=== PATIENT | male | born 1955 | race Caucasian/White ===

== ENCOUNTER 2025-06-29 22:03 | Emergency (ER) | payer MEDICARE, SELFPAY ==
--- NOTE | ~2025-06-29 | CT_ITS ---
EXAMINATION: CT forearm LT wo con COMPARISON: None HISTORY: large hematoma TO MID POSTERIOR FOREARM AFTER FALL TECHNIQUE: Axial images were obtained without IV contrast. Sagittal, coronal reconstruction images were obtained from the axial views. CT scan performed using dose optimization techniques including the following automated exposure control; adjustment of mA and/or kV; use of iterative reconstruction technique. Automatic exposure control was used to reduce radiation dose. Permanent radiation dose record is archived to PACS. FINDINGS: Soft tissues demonstrate diffuse stranding with subcutaneous hemorrhage within the subcutaneous tissues along the dorsal aspect. There is no intramuscular hemorrhage identified. No subcutaneous air or radiopaque foreign body demonstrated. There is no fracture or dislocation. No osseous destruction. Minimal degenerative changes. IMPRESSION: Posttraumatic soft tissue changes with hematoma. Follow-up is recommended to assess resolution Reviewed, dictated and finalized at location A. IMPRESSION: Posttraumatic soft tissue changes with hematoma. Follow-up is recom mended to assess resolution
[2025-06-29 22:03] VITALS: BP 167/99; PULSE 101; RESP 17; TEMP 36.7; O2SAT 97
--- NOTE | 2025-06-29 22:10 | PC.NURSE ---
ERP aware of pt's blood pressure. No new orders at this time.
--- NOTE | 2025-06-29 22:16 | ED_ITS ---
HPI - Wound/Laceration General Chief Complaint: Fall Stated Complaint: bump on arm Time Seen by Provider: 06/29/25 22:16 Source: patient and family Mode of arrival: ambulatory Limitations: no limitations History of Present Illness HPI narrative: Patient is a 70-year-old male who was drinking at his local pub this evening and took a fall from ground level and landed on his left forearm. There is a large hematoma formation of most of the left forearm. Pain is minimal but patient is also alcohol intoxicated. Onset (ago): hour(s) (2) Extremity Location: Left: forearm Place: outdoors, park and other (Patient's local pub and he fell outside the pub) Patient tetanus UTD: No Context: accidental Associated symptoms: pain and loss of feeling/numbness Treatments prior to arrival: other (None) Related Data Allergies Allergy/AdvReac Type Severity Reaction Status Date / Time No Known Allergies Allergy Verified 06/29/25 22:18 Review of Systems Review of Systems: All systems reviewed & are unremarkable except as noted in HPI and below Constitutional: Constitutional: Reports no additional constitutional complaints Eyes: Eyes: Reports no additional eye complaints ENT: Reports system reviewed and no additional complaints, except as documented Cardiovascular: Cardiovascular: Reports no additional cardiovascular complaints Respiratory: Respiratory: Reports no additional respiratory complaints Gastrointestinal: Gastrointestinal: Reports no additional gastrointestinal complaints Genitourinary: Genitourinary: Reports no additional male genitourinary complaints Musculoskeletal: Musculoskeletal: Reports no additional musculoskeletal complaints Integumentary/Breasts: Skin/Breast: Reports system reviewed and no additional complaints, except as docu Neurologic: Reports system reviewed and no additional complaints, except as documented Psychiatric: Psychiatric: Reports no additional psychiatric complaints Endocrine: Endocrine: Reports no additional endocrine complaints Hematologic/Lymphatic: Hematologic/Lymphatic: Reports no additional hematolog ic/lymphatic complaints Allergic/Immunologic: Allergic/Immunologic: Reports no additional allergic/immunologic complaints Exam Const: General: healthy appearing Nutritional Appearance: well nourished Orientation/consciousness: patient oriented x3 Limitations: no limitations Other: 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 HENMT: Head: normal to inspection Ears: external ears normal Face/Nose/Sinus: Normal external nose present Throat: posterior oropharynx normal Eyes: Conjunctivae: conjunctivae normal Pupils: Equal, round and reactive pupils present EOM: EOMs intact bilaterally Neck: Neck: normal visual inspection Chest: Chest palpation & inspection: normal inspection of the chest Resp: Effort & Inspection: normal respiratory effort and not labored Auscultation: clear to auscultation bilaterally and no crackles Cardio: Rate: regular rate Rhythm: regular rhythm Heart sounds: no murmurs GI: Inspection: non-distended GI Palp: Yes Soft to palpation and No Tenderness to palpation present (GI) Auscultation: normal bowel sounds Back/Spine/Pelvis: Back: no CVA tenderness Skin: General skin exam: normal color Rashes: no rashes Wounds: wound noted Other: Patient fell this evening while he was at his local pub and drinking. He fell onto his left forearm and is made a large hematoma formation; distal pulses intact; no pain on hand movement and good range of motion Neuro: General: patient oriented x3, moves all extremities and no meningeal signs Cranial nerves: Yes Nystagmus not present Speech: normal speech Gait exam (Neuro): Normal gait present Extrem: General: normal to inspection Psych: Mental Status: mental status grossly normal Affect: normal affect Attitude: cooperative Course Vital Signs Vital signs: Vital Signs Temperature 36.7 C 06/29/25 22:03 Pulse Rate 101 H 06/29/25 22:03 Respiratory Rate 17 06/29/25 22:03 Blood Pressure 167/99 H 06/29/25 22:03 Pulse Oximetry 97 06/29/25 22:03 Oxygen Delivery Room Air 06/29/25 22:03 Temperature 36.6 C 06/30/25 00:15 Pulse Rate 101 H 06/30/25 00:15 Respiratory Rate 18 06/30/25 00:15 Blood Pressure 194/111 H 06/30/25 00:15 Pulse Oximetry 95 06/30/25 00:15 Oxygen Delivery Room Air 06/30/25 00:15 MDM - Wound/Laceration MDM Narrative Medical decision making narrative: Patient is a 70-year-old male with a fall after intoxication of alcohol to his left forearm. He sustained a large hematoma that will further be evaluated on CT scan. Tetanus booster. Imaging Data Attestation: I personally reviewed and interpreted this imaging study as follows: Discharge Plan Discharge Clinical Impression: Hematoma of forearm Fall Qualifiers: Encounter type: initial encounter Qualified Code(s): W19.XXXA - Unspecified fall, initial encounter Patient Disposition: Home Condition: Stable Instructions: Antibiotic Form, Contusion in Adults (ED), Hematoma (ED) Additional Instructions: Monitor the area of your forearm for increased pain and decreased sensation or range of motion over time; you need to come back to the emergency room with any changes. Your hand and your fingers should not be affected. Patient Language: [place] Follow-up/Referrals: Rashad Juarez MD [Physician, Internal Medicine] Time of Disposition: 00:30
[2025-06-29] MEDS: TETANUS,DIPHTHERIA,AC PERTUSSIS ADULT 0.5 ML (ADACEL) IM (22:39)
[2025-06-30 00:15] VITALS: BP 194/111; PULSE 101; RESP 18; TEMP 36.6; O2SAT 95
== END 2025-06-30 00:45 | disposition home or self-care (01) ==
PROVIDERS: Emergency Provider Emergency Medicine; Referring Provider Family Medicine
DX: S50.12XA Contusion of left forearm, initial encounter (principal); W18.30XA Fall on same level, unspecified, initial encounter; Y92.59 Other trade areas as the place of occurrence of the external cause; Z23 Encounter for immunization
CPT/HCPCS: 73200; 90471; 90715; 99284